=== PATIENT | female | born 1965 | race Two or more races ===

== ENCOUNTER 2017-05-24 21:11 | Emergency (ER) | payer MEDICAID, OTHER ==
[~2017-05-24] VITALS: Ht 162.6 cm; Wt 63.5 kg
--- NOTE | 2017-05-24 21:45 | NUR ---
PT PRESENTED TO THE ER WITH A C/O HEADACHE X 3 DAYS. PT AMBULATED TO BED #2 WITH A STEADY GAIT. PT WAS PLACED ON THE MONITOR AND CONTINUOUS PULSE OX. VSS.
[2017-05-24] MEDS ORDERED: KETOROLAC TROMETHAMINE INJ 30 MG/ML VIAL ONE (21:56)
[2017-05-24] MEDS ORDERED: ONDANSETRON 4 MG TAB.RAPDIS ONE (21:56)
[2017-05-24] MEDS ORDERED: ONDANSETRON 4 MG TAB.RAPDIS SL ONE (22:00)
[2017-05-24] MEDS ORDERED: KETOROLAC TROMETHAMINE INJ 30 MG/ML VIAL IM ONE (22:00)
--- NOTE | 2017-05-24 22:00 | NUR ---
PT REC'D MEDICATION ORDERED.
[2017-05-24] MEDS ORDERED: oxyCODONE/APAP (5/325 MG) 1 UDTAB TABLET ONE (22:27)
[2017-05-24] MEDS ORDERED: oxyCODONE/APAP (5/325 MG) 1 UDTAB TABLET PO ONE (22:30)
[2017-05-24] MEDS ORDERED: IV NS 0.9% 1,000 ML BAG IV ONE (22:30)
--- NOTE | 2017-05-24 23:54 | NUR ---
Patient discharged to home in stable condition. Written and verbal after care instructions given. Patient verbalizes understanding of instruction AND RX. IV removed. Catheter intact and site benign. Pressure and 4x4 applied to site. No bleeding noted. PT AMBULATED OUT WITH A STEADY GAIT. PT'S SON IS DRIVING PT HOME. VSS
[2017-05-24 23:56] VITALS: BP 121/81
== END 2017-05-24 23:57 | disposition home or self-care (01) ==
LOC: ER 21:17
DX: R51 Headache (principal); I10 Essential (primary) hypertension
CPT/HCPCS: 70450; 96360; 96372; 99284; J1885; J7030; Q0162; Z7610; A4606